=== PATIENT | male | born 1970 | race Caucasian/White ===

== ENCOUNTER → 2018-05-11 12:53 | Outpatient (CLI) | payer OTHER, SELFPAY ==
[2018-05-11 13:36] LABS: Add Manual Diff / Slide Review NO; Basophils Absolute Auto 100 /uL (0-100); Eosinophils Absolute Auto 600 /uL (0-450); Eosinophils Percent Auto 8.9 % (2-4); Hematocrit 46.3 % (41-53); Hemoglobin 15.7 g/dL (13.5-17.5); Lymphocytes Absolute Auto 2100 /uL (1100-4500); Lymphocytes Percent Auto 33.2 % (25-40); Mean Corpuscular HGB Conc 33.9 % (30-36); Mean Corpuscular Hemoglobin 31.2 PG (26-34); Mean Corpuscular Volume 91.9 fL (80-100); Monocytes Absolute Auto 600 /uL (0-900); Monocytes Percent Auto 10.3 % (3-14); Neutrophils Absolute Auto 2900 /uL (1500-7000); Neutrophils Percent Auto 46.6 % (50-75); Platelet Count 162 X10^3/uL (150-400); Red Blood Cell Count 5.03 X10^6/uL (4.5-5.9); Red Cell Distribution Width 12.7 % (11.6-14.8); White Blood Cell Count 6.3 X10^3/uL (4.5-11.0)
[2018-05-11 14:07] LABS: Alanine Aminotransferase 495 IU/L (21-72); Albumin 4.5 g/dL (3.5-5.0); Albumin Globulin Ratio 0.9 (1.0-2.8); Alkaline Phosphatase 191 U/L (38-126); Amylase 38 U/L (30-110); Aspartate Aminotransferase 173 IU/L (17-59); Bilirubin Total 5.1 mg/dL (0.2-1.3); Blood Urea Nitrogen 11 mg/dL (9-20); Calcium 9.6 mg/dL (8.4-10.2); Carbon Dioxide 26 mmol/L (22-32); Chloride 98 mmol/L (98-107); Estimated Glomerular Filt Rate > 60.0 mL/min (>60); Globulin 4.8 g/dL (1.7-4.1); Glucose 85 mg/dL (70-100); HEMOLYSIS < 15 (0-50); Lipase 166 U/L (23-300); Potassium 4.4 mmol/L (3.4-5.1); Sodium 137 mmol/L (137-145); Total Protein 9.3 g/dL (6.3-8.2)
[2018-05-11 14:38] LABS: TSH w/ Reflex to FT4 1.06 uIU/mL (0.47-4.68)
== END ==
PROVIDERS: PCP Nurse Practitioner Family; Visit Provider Nurse Practitioner Family
DX: R10.9 Unspecified abdominal pain (principal); Z87.19 Personal history of other diseases of the digestive system; L29.9 Pruritus, unspecified; Z86.19 Personal history of other infectious and parasitic diseases
CPT/HCPCS: 36415; 80053; 82150; 83690; 84443; 85025

== ENCOUNTER 2018-05-15 10:30 | Emergency (ER) | payer OTHER, SELFPAY ==
[2018-05-15] VITALS (7 sets, daily range): BP systolic 128–143; BP diastolic 91–99; PULSE 55–78; RESP 15–23; TEMP 36.6; O2SAT 98–100; BMI 28.5
--- NOTE | 2018-05-15 10:59 | DI.US.S_ITS ---
PROCEDURE: US ABDOMEN COMPLETE INDICATIONS: ruq pain elevated bili TECHNIQUE: Real-time scanning was performed of the abdominal and retroperitoneal organs, with image documentation. COMPARISON: [facility], US, ABDOMEN COMPLETE, 07/18/2013, 7:38. FINDINGS: Liver: Liver is normal in size and homogeneous in echotexture. Gallbladder: Mobile sludge is present within the gallbladder fundus. The gallbladder wall measures 2.3 mm in diameter. Biliary ducts: Intrahepatic bile ducts are non-dilated. Extrahepatic bile duct caliber measures 5.8 mm. Normal is 6-7 mm or less in diameter, or 10 mm or less post-cholecystectomy. Pancreas: The pancreas is only partially visualized. There is a questionable mass within the head of the pancreas which measures roughly 4.9 x 3.0 x 3.7 cm. Spleen: Spleen is normal in size and homogeneous in echotexture. Kidneys: Kidneys are normal in size and echotexture. Right kidney measures 12.0 cm long; left kidney measures 12.9 cm long. No hydronephrosis or nephrolithiasis. No solid masses. Aorta: Visualized aorta is normal in caliber at less than 3 cm. Iliacs: Proximal common iliac arteries are normal in caliber at less than 2.5 cm. IVC: Intrahepatic inferior vena cava is patent. Miscellaneous: No free abdominal fluid. IMPRESSION: 1. Questionable mass at the head of the pancreas. Pancreatic mass protocol CT is recommended to further characterize findings. This finding was discussed with Dr. Landin 11:45 AM on 05/15/18. 2. Gallbladder sludge. No findings to suggest choledocholithiasis or acute cholecystitis. Dictated by: Salome Chapa M.D. on 05/15/2018 at 11:43 Approved by: Salome Chapa M.D. on 05/15/2018 at 11:46
--- NOTE | 2018-05-15 11:01 | ED.RECABL ---
HPI - Recheck/Abnormal Lab/Rx General Chief Complaint: Recheck/Abnormal Lab/Rx Stated Complaint: jaundice,severe weight loss,abd pain Time Seen by Provider: 05/15/18 10:59 Source: patient Mode of arrival: ambulatory Limitations: no limitations History of Present Illness HPI narrative: patient is a 48-year-old male with history of hepatitis C, which was treated and has been controlled for the past 13 years. Now presenting with pruritus ongoing for the last 1 week.. Initially thought to be related to laundry detergent. However he feels like his eyes have gotten more yellow. Benadryl does not help with his itching. He has no shortness of breath. He has been having some abdominal discomfort in the center of his abdomen. He has had pancreatitis in the past as it does not feel quite like that. He had blood work on 05/11/2018 he had liver enzymes which were previously normal now elevated and elevated bilirubin. His mild right upper quadrant pain but more mid umbilical pain. Nauseated no vomiting no fevers no chest pain or shortness of breath. MD complaint: abnormal lab Related Data Home Medications Medication Instructions Recorded Confirmed cetirizine 10 mg capsule 10 mg PO DAILY 05/11/18 05/15/18 Tums 1 tab PO PRN PRN 05/15/18 05/15/18 hydrochlorothiazide 25 mg PO DAILY 05/15/18 05/15/18 lisinopril 10 mg PO DAILY 05/15/18 05/15/18 Previous Rx's Medication Instructions Recorded hydroxyzine pamoate 25 mg PO Q6-8H PRN #30 cap 05/15/18 ondansetron 4 mg PO Q8H PRN #20 tab 05/15/18 Allergies Allergy/AdvReac Type Severity Reaction Status Date / Time No Known Drug Allergies Allergy Verified 05/11/18 12:04 Review of Systems Review of Systems GENERAL: Denies chills, fatigue, malaise, fever, sweats, travel HEENT: Denies sinus pain, ear pain, sore throat, difficulty swallowing, neck pain RESPIRATORY: Denies dyspnea, cough, wheezing, hemoptysis, sputum. CARDIOVASCULAR: Denies chest pain, palpitations, orthopnea, edema GASTROINTESTINAL: See HPI : Denies dysuria, frequency, incontinence, hematuria, urinary retention, flank pain. MUSCULOSKELETAL: Denies weakness, joint pain, or bony pain SKIN: No rash, no erythema, no pruritus NEUROLOGIC: Denies weakness, dizziness, headache, numbness, change in speech, confusion PSYCHIATRIC: No concerning psychosocial issues. 12 point review of systems is negative except for those stated above and HPI [facility] Medical History Sebaceous cyst (Chronic) Smoker (Chronic) Chronic pancreatitis (Chronic 08/13/16) Essential hypertension (Chronic 11/18/16) Allergic rhinitis (Chronic Unknown) Herpes (Chronic Unknown) Hepatitis C (Resolved ~2005) Surgical History No history of previous surgery (Resolved) Family History Family/Other Adopted Social History Smoking Status: Former smoker alcohol intake: current (2 or 3 beers a week ) Family History Family/Other Adopted Social History Smoking Status: Former smoker alcohol intake: current (2 or 3 beers a week ) Exam Initial Vital Signs Initial Vital Signs: Vital Signs Temperature 97.9 F 05/15/18 10:39 Pulse Rate 78 05/15/18 10:39 Respiratory Rate 18 05/15/18 10:39 Blood Pressure 132/96 H 05/15/18 10:39 Pulse Oximetry 98 05/15/18 10:39 Const General: cooperative, comfortable and well groomed Nutritional Appearance: average body habitus Orientation: alert, awake and oriented x3 Eyes Alignment and Position: alignment normal Conjunctivae: conjunctival abnormality bilaterally conjunctival icterus Pupils: PERRL EOM: EOM intact bilaterally Neck Neck: normal visual inspection, trachea midline, No lymphadenopathy, No midline deformity and No JVD Lymphatic: No lymphedema Chest Chest: normal inspection of the chest Resp Effort & Inspection: normal respiratory effort Auscultation: clear to auscultation bilaterally, no rales, no rhonchi and no wheezes Cardio Rate: regular rate Rhythm: regular rhythm Heart Sounds: S1 normal and S2 normal GI Palpation: No firm, tender (mild ruq and umbilical), No ascites and No Carnett's sign positive Auscultation: normal bowel sounds Skin General: No dry skin and jaundice Neuro General: alert, oriented x3, gait normal and no focal motor deficits Speech: speech normal Extrem General: full ROM, no clubbing, cyanosis or edema, no pedal edema and no calf tenderness Course Orders Ordered: Discontinued Medications Hydroxyzine Pamoate (Vistaril) 25 mg PO NOW ONE Stop: 05/15/18 11:02 Last Admin: 05/15/18 11:28 Dose: 25 mg Sodium Chloride (Normal Saline 0.9%) 1,000 mls @ 1,000 mls/hr IV CONT ERICA Last Infusion: 05/15/18 13:03 Dose: 0 mls/hr Admin: 05/15/18 11:28 Dose: 1,000 mls/hr Ondansetron HCl (Zofran) 4 mg IV NOW ONE Stop: 05/15/18 11:41 Last Admin: 05/15/18 11:42 Dose: 4 mg Vital Signs - 8 hr 05/15/18 10:39 Temperature 97.9 F Pulse Rate 78 Respiratory Rate 18 Blood Pressure 132/96 H Pulse Oximetry 98 MDM - Recheck/Abnormal Lab/Rx Lab Data Attestation: I reviewed the patient's lab results. Result diagrams: 05/15/18 11:13 05/15/18 11:13 Lab Results 05/15/18 05/15/18 05/15/18 Range/Units 11:13 11:13 11:30 WBC 5.9 (4.5-11.0) X10^3/uL RBC 5.16 (4.5-5.9) X10^6/uL Hgb 16.3 (13.5-17.5) g/dL Hct 47.2 (41-53) % MCV 91.5 (80-100) fL MCH 31.5 (26-34) PG MCHC 34.5 (30-36) % RDW 13.1 (11.6-14.8) % Plt Count 165 (150-400) X10^3/uL Neut % (Auto) 49.2 L (50-75) % Lymph % (Auto) 27.7 (25-40) % [place] % (Auto) 11.7 (3-14) % Eos % (Auto) 9.9 H (2-4) % Baso % (Auto) 1.5 (0-2) % Neut # (Auto) 2900 (1900-1389) /uL Lymph # (Auto) 1600 (5259-4666) /uL [place] # (Auto) 700 (0-900) /uL Eos # (Auto) 600 H (0-450) /uL Baso # (Auto) 100 (0-100) /uL Sodium 137 (137-145) mmol/L Potassium 3.9 (3.4-5.1) mmol/L Chloride 101 (98-107) mmol/L Carbon Dioxide 24 (22-32) mmol/L BUN 20 (9-20) mg/dL Creatinine 0.90 (0.66-1.25) mg/dL Estimated GFR > 60.0 (>60) mL/min BUN/Creatinine Ratio 22.2 H (6-22) Glucose 193 H D (70-100) mg/dL Calcium 9.7 (8.4-10.2) mg/dL Total Bilirubin 7.2 H (0.2-1.3) mg/dL AST 60 H (17-59) IU/L ALT 201 H (21-72) IU/L Alkaline Phosphatase 159 H (38-126) U/L Total Protein 9.4 H (6.3-8.2) g/dL Albumin 4.3 (3.5-5.0) g/dL Globulin 5.1 H (1.7-4.1) g/dL Albumin/Globulin Ratio 0.8 L (1.0-2.8) Lipase 100 (23-300) U/L Urine RBC None seen (0-5/HPF) Urine WBC 5-10/hpf H (0-5/HPF) Amorphous Sediment 1+ Urine Bacteria Few (2-10) H (None) Hyaline Casts 1-5/lpf (None) Ur Culture Indicated? Specimen cultured Urine Dip Bedside Urine Glucose 250 mg/dl Bedside Urine Bilirubin + 1 Bedside Urine Ketone - Negative Urine Specific Ranger 1.025 Bedside Urine Occult Blood - Negative Bedside Urine pH 6.0 Bedside Urine Protein +/- 15 Bedside Urine Urobilinogen +/- 1mg Bedside Urine Nitrite - Negative Bedside Urine Leukocytes +/- 15 Esterase Imaging Data US - abdomen: Radiologist's impression: PROCEDURE: US ABDOMEN COMPLETE INDICATIONS: ruq pain elevated bili TECHNIQUE: Real-time scanning was performed of the abdominal and retroperitoneal organs, with image documentation. COMPARISON: [facility], US, ABDOMEN COMPLETE, 07/18/2013, 7:38. FINDINGS: Liver: Liver is normal in size and homogeneous in echotexture. Gallbladder: Mobile sludge is present within the gallbladder fundus. The gallbladder wall measures 2.3 mm in diameter. Biliary ducts: Intrahepatic bile ducts are non-dilated. Extrahepatic bile duct caliber measures 5.8 mm. Normal is 6-7 mm or less in diameter, or 10 mm or less post-cholecystectomy. Pancreas: The pancreas is only partially visualized. There is a questionable mass within the head of the pancreas which measures roughly 4.9 x 3.0 x 3.7 cm. Spleen: Spleen is normal in size and homogeneous in echotexture. Kidneys: Kidneys are normal in size and echotexture. Right kidney measures 12.0 cm long; left kidney measures 12.9 cm long. No hydronephrosis or nephrolithiasis. No solid masses. Aorta: Visualized aorta is normal in caliber at less than 3 cm. Iliacs: Proximal common iliac arteries are normal in caliber at less than 2.5 cm. IVC: Intrahepatic inferior vena cava is patent. Miscellaneous: No free abdominal fluid. IMPRESSION: 1. Questionable mass at the head of the pancreas. Pancreatic mass protocol CT is recommended to further characterize findings. This finding was discussed with Dr. Landin 11:45 AM on 05/15/18. 2. Gallbladder sludge. No findings to suggest choledocholithiasis or acute cholecystitis. Dictated by: Salome Chapa M.D. on 05/15/2018 at 11:43 CT scan - abdomen: Radiologist's impression: PROCEDURE: CT ABDOMEN WWO PELVIS W INDICATIONS: pancratic mass on ultrasound TECHNIQUE: After the administration of oral contrast, 5 mm thick sections acquired from the diaphragms to the iliac crests. After the administration of intravenous contrast, 5 mm thick sections acquired from the diaphragms to the symphysis. 5 mm thick coronal and sagittal reformats were acquired. For radiation dose reduction, the following was used: automated exposure control, adjustment of mA and/or kV according to patient size. COMPARISON: [facility], CT, ABDOMEN WITH CONTRAST, 08/23/2016, 9:53. [facility], US, US ABDOMEN COMPLETE, 05/15/2018, 11:10. FINDINGS: Image quality: Excellent. ABDOMEN: Lung bases: Lung bases are clear. Heart size is normal. A small hiatal hernia is incidentally noted. Solid organs: Liver is normal in size and enhancement. Gallbladder wall does not appear thickened. Biliary system is non-dilated. In this patient with this given history, scrutiny is given to the pancreas. No definite spiculated masses are seen, although there is broad fullness seen of the body of the pancreas. 2 small cystic foci are seen involving head of the pancreas that measure 1 cm on series 3 image 47 and also 1 cm on series 3 image 43. Minimal surrounding inflammatory change can be seen. Spleen is normal in size and enhancement. No adrenal nodules. Both kidneys are normal in size. No hydronephrosis or nephrolithiasis. Bowel and peritoneum: Stomach, small and large bowel loops are normal in caliber and wall thickness. No free fluid or air. Incidental note is made of a normal-appearing appendix. Nodes and vessels: No retroperitoneal or mesenteric adenopathy by size criteria. Aorta and inferior vena are normal in caliber. Miscellaneous: No ventral hernias. PELVIS: Genitourinary: Bladder wall thickness is normal. Miscellaneous: No inguinal hernias or adenopathy. Bones: No suspicious bony lesions. No vertebral body compression fractures. IMPRESSION: Pancreatic fullness, without a discrete mass identified. Surrounding inflammatory changes are seen. Please correlate with active pancreatitis. Followup is recommended, with either a short-term followup pancreatic protocol MRI or a pancreatic protocol CT of the abdomen in 2-3 months. Dictated by: Dany Jacobs M.D. on 05/15/2018 at 11:47 MDM Narrative Medical decision making narrative: Patient's bilirubin has increased since last week his liver enzymes have improved slightly. Ultrasound shows possible pancreatic mass. CT is done. No discrete mass found on CT however there is high suspicion with patient's symptoms. Recommended MRI of the pancreas. I called and spoke with Dr. rees she who works at patient's PCP office. The patient has an appointment with them tomorrow she is trying to arrange outpatient MRI. I have discussed all results with patient and . They agree and will follow up tomorrow. They understand MRI will need to be done and further testing. Discharge Plan Departure Patient Disposition: Home Clinical Impression: Pancreatic abnormality, Elevated bilirubin Discharge Date/Time: 05/15/18 14:08 Interventions: ED Discharge Assessment Last Done: 05/15/18 14:07 Instructions: Pancreatic Cancer Activity Restrictions/Additional Instructions: *You have been diagnosed with Pancreatic abnormality, elevated bilirubin *What to do: he will need further testing MRI of the pancreas. Also close monitoring. increase fluid intake small frequent amounts of Gatorade or Gatorade like substance *Continue to take medications as directed Vistaril 25-50 mg every 6 hr if needed for itching or nausea Zofran 4 mg sublingual every 6-8 hours if needed for nausea or vomiting *Follow up with your primary care provider Selina Cordero tomorrow at 3:45 p.m. *Return to ER if you should have persistent vomiting, increased pain, weakness, confusion or any new, worsening or concerning symptoms Prescriptions: New ondansetron 4 mg tablet,disintegrating 4 mg PO Q8H PRN (Reason: nausea and vomiting) Qty: 20 RF: 0 hydroxyzine pamoate 25 mg capsule 25 mg PO Q6-8H PRN (Reason: itching) Qty: 30 RF: 0 No Action Zyrtec 10 mg capsule 10 mg PO DAILY RF: 0 lisinopril 10 mg tablet 10 mg PO DAILY RF: 0 hydrochlorothiazide 25 mg tablet 25 mg PO DAILY RF: 0 Tums 1 tab PO PRN PRN (Reason: Indigestion) RF: 0 Referrals: Selina Cordero ARNP [Primary Care Provider] - Stand Alone Forms: Work Release Note
--- NOTE | 2018-05-15 11:06 | ED_ITS ---
HPI - Recheck/Abnormal Lab/Rx General Chief Complaint: Recheck/Abnormal Lab/Rx Stated Complaint: jaundice,severe weight loss,abd pain Time Seen by Provider: 05/15/18 10:59 Source: patient Mode of arrival: ambulatory Limitations: no limitations History of Present Illness HPI narrative: patient is a 48-year-old male with history of hepatitis C, which was treated and has been controlled for the past 13 years. Now presenting with pruritus ongoing for the last 1 week.. Initially thought to be related to laundry detergent. However he feels like his eyes have gotten more yellow. Benadryl does not help with his itching. He has no shortness of breath. He has been having some abdominal discomfort in the center of his abdomen. He has had pancreatitis in the past as it does not feel quite like that. He had blood work on 05/11/2018 he had liver enzymes which were previously normal now elevated and elevated bilirubin. His mild right upper quadrant pain but more mid umbilical pain. Nauseated no vomiting no fevers no chest pain or shortness of breath. MD complaint: abnormal lab Related Data Home Medications Medication Instructions Recorded Confirmed cetirizine 10 mg capsule 10 mg PO DAILY 05/11/18 05/15/18 Tums 1 tab PO PRN PRN 05/15/18 05/15/18 hydrochlorothiazide 25 mg PO DAILY 05/15/18 05/15/18 lisinopril 10 mg PO DAILY 05/15/18 05/15/18 Previous Rx's Medication Instructions Recorded hydroxyzine pamoate 25 mg PO Q6-8H PRN #30 cap 05/15/18 ondansetron 4 mg PO Q8H PRN #20 tab 05/15/18 Allergies Allergy/AdvReac Type Severity Reaction Status Date / Time No Known Drug Allergies Allergy Verified 05/11/18 12:04 Review of Systems Review of Systems GENERAL: Denies chills, fatigue, malaise, fever, sweats, travel HEENT: Denies sinus pain, ear pain, sore throat, difficulty swallowing, neck pain RESPIRATORY: Denies dyspnea, cough, wheezing, hemoptysis, sputum. CARDIOVASCULAR: Denies chest pain, palpitations, orthopnea, edema GASTROINTESTINAL: See HPI : Denies dysuria, frequency, incontinence, hematuria, urinary retention, flank pain. MUSCULOSKELETAL: Denies weakness, joint pain, or bony pain SKIN: No rash, no erythema, no pruritus NEUROLOGIC: Denies weakness, dizziness, headache, numbness, change in speech, confusion PSYCHIATRIC: No concerning psychosocial issues. 12 point review of systems is negative except for those stated above and HPI [facility] Medical History Sebaceous cyst (Chronic) Smoker (Chronic) Chronic pancreatitis (Chronic 08/13/16) Essential hypertension (Chronic 11/18/16) Allergic rhinitis (Chronic Unknown) Herpes (Chronic Unknown) Hepatitis C (Resolved ~2005) Surgical History No history of previous surgery (Resolved) Family History Family/Other Adopted Social History Smoking Status: Former smoker alcohol intake: current (2 or 3 beers a week ) Family History Family/Other Adopted Social History Smoking Status: Former smoker alcohol intake: current (2 or 3 beers a week ) Exam Initial Vital Signs Initial Vital Signs: Vital Signs Temperature 97.9 F 05/15/18 10:39 Pulse Rate 78 05/15/18 10:39 Respiratory Rate 18 05/15/18 10:39 Blood Pressure 132/96 H 05/15/18 10:39 Pulse Oximetry 98 05/15/18 10:39 Const General: cooperative, comfortable and well groomed Nutritional Appearance: average body habitus Orientation: alert, awake and oriented x3 Eyes Alignment and Position: alignment normal Conjunctivae: conjunctival abnormality bilaterally conjunctival icterus Pupils: PERRL EOM: EOM intact bilaterally Neck Neck: normal visual inspection, trachea midline, No lymphadenopathy, No midline deformity and No JVD Lymphatic: No lymphedema Chest Chest: normal inspection of the chest Resp Effort & Inspection: normal respiratory effort Auscultation: clear to auscultation bilaterally, no rales, no rhonchi and no wheezes Cardio Rate: regular rate Rhythm: regular rhythm Heart Sounds: S1 normal and S2 normal GI Palpation: No firm, tender (mild ruq and umbilical), No ascites and No Carnett's sign positive Auscultation: normal bowel sounds Skin General: No dry skin and jaundice Neuro General: alert, oriented x3, gait normal and no focal motor deficits Speech: speech normal Extrem General: full ROM, no clubbing, cyanosis or edema, no pedal edema and no calf tenderness Course Orders Ordered: Discontinued Medications Hydroxyzine Pamoate (Vistaril) 25 mg PO NOW ONE Stop: 05/15/18 11:02 Last Admin: 05/15/18 11:28 Dose: 25 mg Sodium Chloride (Normal Saline 0.9%) 1,000 mls @ 1,000 mls/hr IV CONT ERICA Last Infusion: 05/15/18 13:03 Dose: 0 mls/hr Admin: 05/15/18 11:28 Dose: 1,000 mls/hr Ondansetron HCl (Zofran) 4 mg IV NOW ONE Stop: 05/15/18 11:41 Last Admin: 05/15/18 11:42 Dose: 4 mg Vital Signs - 8 hr 05/15/18 10:39 Temperature 97.9 F Pulse Rate 78 Respiratory Rate 18 Blood Pressure 132/96 H Pulse Oximetry 98 MDM - Recheck/Abnormal Lab/Rx Lab Data Attestation: I reviewed the patient's lab results. Result diagrams: 05/15/18 11:13 05/15/18 11:13 Lab Results 05/15/18 05/15/18 05/15/18 Range/Units 11:13 11:13 11:30 WBC 5.9 (4.5-11.0) X10^3/uL RBC 5.16 (4.5-5.9) X10^6/uL Hgb 16.3 (13.5-17.5) g/dL Hct 47.2 (41-53) % MCV 91.5 (80-100) fL MCH 31.5 (26-34) PG MCHC 34.5 (30-36) % RDW 13.1 (11.6-14.8) % Plt Count 165 (150-400) X10^3/uL Neut % (Auto) 49.2 L (50-75) % Lymph % (Auto) 27.7 (25-40) % [place] % (Auto) 11.7 (3-14) % Eos % (Auto) 9.9 H (2-4) % Baso % (Auto) 1.5 (0-2) % Neut # (Auto) 2900 (4706-1349) /uL Lymph # (Auto) 1600 (7105-7853) /uL [place] # (Auto) 700 (0-900) /uL Eos # (Auto) 600 H (0-450) /uL Baso # (Auto) 100 (0-100) /uL Sodium 137 (137-145) mmol/L Potassium 3.9 (3.4-5.1) mmol/L Chloride 101 (98-107) mmol/L Carbon Dioxide 24 (22-32) mmol/L BUN 20 (9-20) mg/dL Creatinine 0.90 (0.66-1.25) mg/dL Estimated GFR > 60.0 (>60) mL/min BUN/Creatinine Ratio 22.2 H (6-22) Glucose 193 H D (70-100) mg/dL Calcium 9.7 (8.4-10.2) mg/dL Total Bilirubin 7.2 H (0.2-1.3) mg/dL AST 60 H (17-59) IU/L ALT 201 H (21-72) IU/L Alkaline Phosphatase 159 H (38-126) U/L Total Protein 9.4 H (6.3-8.2) g/dL Albumin 4.3 (3.5-5.0) g/dL Globulin 5.1 H (1.7-4.1) g/dL Albumin/Globulin Ratio 0.8 L (1.0-2.8) Lipase 100 (23-300) U/L Urine RBC None seen (0-5/HPF) Urine WBC 5-10/hpf H (0-5/HPF) Amorphous Sediment 1+ Urine Bacteria Few (2-10) H (None) Hyaline Casts 1-5/lpf (None) Ur Culture Indicated? Specimen cultured Urine Dip Bedside Urine Glucose 250 mg/dl Bedside Urine Bilirubin + 1 Bedside Urine Ketone - Negative Urine Specific [place] 1.025 Bedside Urine Occult Blood - Negative Bedside Urine pH 6.0 Bedside Urine Protein +/- 15 Bedside Urine Urobilinogen +/- 1mg Bedside Urine Nitrite - Negative Bedside Urine Leukocytes +/- 15 Esterase Imaging Data US - abdomen: Radiologist's impression: PROCEDURE: US ABDOMEN COMPLETE INDICATIONS: ruq pain elevated bili TECHNIQUE: Real-time scanning was performed of the abdominal and retroperitoneal organs, with image documentation. COMPARISON: [facility], US, ABDOMEN COMPLETE, 07/18/2013, 7:38. FINDINGS: Liver: Liver is normal in size and homogeneous in echotexture. Gallbladder: Mobile sludge is present within the gallbladder fundus. The gallbladder wall measures 2.3 mm in diameter. Biliary ducts: Intrahepatic bile ducts are non-dilated. Extrahepatic bile duct caliber measures 5.8 mm. Normal is 6-7 mm or less in diameter, or 10 mm or less post-cholecystectomy. Pancreas: The pancreas is only partially visualized. There is a questionable mass within the head of the pancreas which measures roughly 4.9 x 3.0 x 3.7 cm. Spleen: Spleen is normal in size and homogeneous in echotexture. Kidneys: Kidneys are normal in size and echotexture. Right kidney measures 12.0 cm long; left kidney measures 12.9 cm long. No hydronephrosis or nephrolithiasis. No solid masses. Aorta: Visualized aorta is normal in caliber at less than 3 cm. Iliacs: Proximal common iliac arteries are normal in caliber at less than 2.5 cm. IVC: Intrahepatic inferior vena cava is patent. Miscellaneous: No free abdominal fluid. IMPRESSION: 1. Questionable mass at the head of the pancreas. Pancreatic mass protocol CT is recommended to further characterize findings. This finding was discussed with Dr. Landin 11:45 AM on 05/15/18. 2. Gallbladder sludge. No findings to suggest choledocholithiasis or acute cholecystitis. Dictated by: Salome Chapa M.D. on 05/15/2018 at 11:43 CT scan - abdomen: Radiologist's impression: PROCEDURE: CT ABDOMEN WWO PELVIS W INDICATIONS: pancratic mass on ultrasound TECHNIQUE: After the administration of oral contrast, 5 mm thick sections acquired from the diaphragms to the iliac crests. After the administration of intravenous contrast, 5 mm thick sections acquired from the diaphragms to the symphysis. 5 mm thick coronal and sagittal reformats were acquired. For radiation dose reduction, the following was used: automated exposure control, adjustment of mA and/or kV according to patient size. COMPARISON: [facility], CT, ABDOMEN WITH CONTRAST, 08/23/2016, 9:53. [facility], US, US ABDOMEN COMPLETE, 05/15/2018, 11:10. FINDINGS: Image quality: Excellent. ABDOMEN: Lung bases: Lung bases are clear. Heart size is normal. A small hiatal hernia is incidentally noted. Solid organs: Liver is normal in size and enhancement. Gallbladder wall does not appear thickened. Biliary system is non-dilated. In this patient with this given history, scrutiny is given to the pancreas. No definite spiculated masses are seen, although there is broad fullness seen of the body of the pancreas. 2 small cystic foci are seen involving head of the pancreas that measure 1 cm on series 3 image 47 and also 1 cm on series 3 image 43. Minimal surrounding inflammatory change can be seen. Spleen is normal in size and enhancement. No adrenal nodules. Both kidneys are normal in size. No hydronephrosis or nephrolithiasis. Bowel and peritoneum: Stomach, small and large bowel loops are normal in caliber and wall thickness. No free fluid or air. Incidental note is made of a normal- appearing appendix. Nodes and vessels: No retroperitoneal or mesenteric adenopathy by size criteria. Aorta and inferior vena are normal in caliber. Miscellaneous: No ventral hernias. PELVIS: Genitourinary: Bladder wall thickness is normal. Miscellaneous: No inguinal hernias or adenopathy. Bones: No suspicious bony lesions. No vertebral body compression fractures. IMPRESSION: Pancreatic fullness, without a discrete mass identified. Surroundin g inflammatory changes are seen. Please correlate with active pancreatitis. Followup is recommended, with either a short-term followup pancreatic protocol MRI or a pancreatic protocol CT of the abdomen in 2-3 months. Dictated by: Dany Jacobs M.D. on 05/15/2018 at 11:47 MDM Narrative Medical decision making narrative: Patient's bilirubin has increased since last week his liver enzymes have improved slightly. Ultrasound shows possible pancreatic mass. CT is done. No discrete mass found on CT however there is high suspicion with patient's symptoms. Recommended MRI of the pancreas. I called and spoke with Dr. rees she who works at patient's PCP office. The patient has an appointment with them tomorrow she is trying to arrange outpatient MRI. I have discussed all results with patient and . They agree and will follow up tomorrow. They understand MRI will need to be done and further testi ng. Discharge Plan Departure Patient Disposition: Home Clinical Impression: Pancreatic abnormality, Elevated bilirubin Discharge Date/Time: 05/15/18 14:08 Interventions: ED Discharge Assessment Last Done: 05/15/18 14:07 Instructions: Pancreatic Cancer Activity Restrictions/Additional Instructions: *You have been diagnosed with Pancreatic abnormality, elevated bilirubin *What to do: he will need further testing MRI of the pancreas. Also close monitoring. increase fluid intake small frequent amounts of Gatorade or Gatorade like substance *Continue to take medications as directed Vistaril 25-50 mg every 6 hr if needed for itching or nausea Zofran 4 mg sublingual every 6-8 hours if needed for nausea or vomiting *Follow up with your primary care provider Selina Cordero tomorrow at 3:45 p.m. *Return to ER if you should have persistent vomiting, increased pain, weakness, confusion or any new, worsening or concerning symptoms Prescriptions: New ondansetron 4 mg tablet,disintegrating 4 mg PO Q8H PRN (Reason: nausea and vomiting) Qty: 20 RF: 0 hydroxyzine pamoate 25 mg capsule 25 mg PO Q6-8H PRN (Reason: itching) Qty: 30 RF: 0 No Action Zyrtec 10 mg capsule 10 mg PO DAILY RF: 0 lisinopril 10 mg tablet 10 mg PO DAILY RF: 0 hydrochlorothiazide 25 mg tablet 25 mg PO DAILY RF: 0 Tums 1 tab PO PRN PRN (Reason: Indigestion) RF: 0 Referrals: Selina Cordero ARNP [Primary Care Provider] - Stand Alone Forms: Work Release Note
[2018-05-15 11:21] LABS: Add Manual Diff / Slide Review NO; Basophils Absolute Auto 100 /uL (0-100); Basophils Percent Auto 1.5 % (0-2); Eosinophils Absolute Auto 600 /uL (0-450); Eosinophils Percent Auto 9.9 % (2-4); Hematocrit 47.2 % (41-53); Hemoglobin 16.3 g/dL (13.5-17.5); Lymphocytes Absolute Auto 1600 /uL (1100-4500); Lymphocytes Percent Auto 27.7 % (25-40); Mean Corpuscular HGB Conc 34.5 % (30-36); Mean Corpuscular Hemoglobin 31.5 PG (26-34); Mean Corpuscular Volume 91.5 fL (80-100); Monocytes Absolute Auto 700 /uL (0-900); Monocytes Percent Auto 11.7 % (3-14); Neutrophils Absolute Auto 2900 /uL (1500-7000); Neutrophils Percent Auto 49.2 % (50-75); Platelet Count 165 X10^3/uL (150-400); Red Blood Cell Count 5.16 X10^6/uL (4.5-5.9); Red Cell Distribution Width 13.1 % (11.6-14.8); White Blood Cell Count 5.9 X10^3/uL (4.5-11.0)
[2018-05-15] MEDS: hydrOXYzine pamoate 25 MG CAPSULE PO (11:28)
[2018-05-15] MEDS: SODIUM CHLORIDE 0.9% 1,000 ML 1000 ML IV (11:28)
[2018-05-15 11:32] LABS: Alanine Aminotransferase 201 IU/L (21-72); Albumin 4.3 g/dL (3.5-5.0); Albumin Globulin Ratio 0.8 (1.0-2.8); Alkaline Phosphatase 159 U/L (38-126); Aspartate Aminotransferase 60 IU/L (17-59); BUN Creatinine Ratio 22.2 (6-22); Bilirubin Total 7.2 mg/dL (0.2-1.3); Blood Urea Nitrogen 20 mg/dL (9-20); Calcium 9.7 mg/dL (8.4-10.2); Carbon Dioxide 24 mmol/L (22-32); Chloride 101 mmol/L (98-107); Estimated Glomerular Filt Rate > 60.0 mL/min (>60); Globulin 5.1 g/dL (1.7-4.1); Glucose 193 mg/dL (70-100); HEMOLYSIS < 15 (0-50); Lipase 100 U/L (23-300); Potassium 3.9 mmol/L (3.4-5.1); Sodium 137 mmol/L (137-145); Total Protein 9.4 g/dL (6.3-8.2)
[2018-05-15] MEDS: ONDANSETRON 4 MG/2 ML INJ IV (11:42)
[2018-05-15 11:46] LABS: RBC Urine None Seen (0-5/HPF)
[2018-05-15 11:57] LABS: Amorphous Sediment Urine 1+; WBC Urine 5-10/HPF (0-5/HPF)
[2018-05-15 11:58] LABS: Bacteria Urine Few (2-10); Culture Indicated Urine Specimen Cultured; Hyaline Casts Urine 1-5/LPF
--- NOTE | 2018-05-15 12:01 | DI.CT.S_ITS ---
PROCEDURE: CT ABDOMEN WWO PELVIS W INDICATIONS: pancratic mass on ultrasound TECHNIQUE: After the administration of oral contrast, 5 mm thick sections acquired from the diaphragms to the iliac crests. After the administration of intravenous contrast, 5 mm thick sections acquired from the diaphragms to the symphysis. 5 mm thick coronal and sagittal reformats were acquired. For radiation dose reduction, the following was used: automated exposure control, adjustment of mA and/or kV according to patient size. COMPARISON: [facility], CT, ABDOMEN WITH CONTRAST, 08/23/2016, 9:53. [facility], US, US ABDOMEN COMPLETE, 05/15/2018, 11:10. FINDINGS: Image quality: Excellent. ABDOMEN: Lung bases: Lung bases are clear. Heart size is normal. A small hiatal hernia is incidentally noted. Solid organs: Liver is normal in size and enhancement. Gallbladder wall does not appear thickened. Biliary system is non-dilated. In this patient with this given history, scrutiny is given to the pancreas. No definite spiculated masses are seen, although there is broad fullness seen of the body of the pancreas. 2 small cystic foci are seen involving head of the pancreas that measure 1 cm on series 3 image 47 and also 1 cm on series 3 image 43. Minimal surrounding inflammatory change can be seen. Spleen is normal in size and enhancement. No adrenal nodules. Both kidneys are normal in size. No hydronephrosis or nephrolithiasis. Bowel and peritoneum: Stomach, small and large bowel loops are normal in caliber and wall thickness. No free fluid or air. Incidental note is made of a normal-appearing appendix. Nodes and vessels: No retroperitoneal or mesenteric adenopathy by size criteria. Aorta and inferior vena are normal in caliber. Miscellaneous: No ventral hernias. PELVIS: Genitourinary: Bladder wall thickness is normal. Miscellaneous: No inguinal hernias or adenopathy. Bones: No suspicious bony lesions. No vertebral body compression fractures. IMPRESSION: Pancreatic fullness, without a discrete mass identified. Surrounding inflammatory changes are seen. Please correlate with active pancreatitis. Followup is recommended, with either a short-term followup pancreatic protocol MRI or a pancreatic protocol CT of the abdomen in 2-3 months. Dictated by: Dany Jacobs M.D. on 05/15/2018 at 11:47 Approved by: Dany Jacobs M.D. on 05/15/2018 at 11:53
== END 2018-05-15 14:08 | disposition home or self-care (01) ==
PROVIDERS: Emergency Provider Emergency Medicine; PCP Nurse Practitioner Family
DX: Q45.3 Other congenital malformations of pancreas and pancreatic duct (principal); R17 Unspecified jaundice
CPT/HCPCS: 36591; 74178; 76700; 80053; 81003; 81015; 83690; 85025; 87086; 96361; 96374; 99284; J2405; Q9967

== ENCOUNTER → 2018-05-17 09:48 | Outpatient (CLI) | payer OTHER, SELFPAY ==
--- NOTE | 2018-05-17 09:49 | DI.MRI.S_ITS ---
PROCEDURE: MR ABDOMEN WO/W CON INDICATIONS: Pancreatic Protocol TECHNIQUE: Coronal HASTE, axial 2D FLASH in- and [id number]; axial breath-hold T2 FSE. Dynamic axial VIBE during the administration of contrast; post-contrast coronal VIBE or 2D FLASH with fat saturation from the hepatic dome to the iliac crests. Optional diffusion weighted imaging and ADC may be performed. COMPARISON: [facility], CT, CT ABDOMEN WWO PELVIS W, 05/15/2018, 12:18. [facility], US, US ABDOMEN COMPLETE, 05/15/2018, 11:10. FINDINGS: Image quality: Excellent. Lung bases: No basal pleural effusions. Heart size is normal. Solid organs: The pancreas is unremarkable. No pancreatic masses are evident. Small cysts involving the tail of the pancreas are present with prominence of multiple sidebranches involving the body and tail. The main pancreatic duct is normal in size and measures approximately 2-3 mm in diameter. Additional smaller cystic foci are present involving the body and head of the pancreas. The adrenals and kidneys are within normal limits there is no hydronephrosis. The spleen is within normal limits. No focal splenic lesion is identified. The liver is normal in size. There is mild focal prominence of the lateral segment of the left hepatic lobe without signal dropout on opposed phase images compared to the in phase images. Postcontrast images demonstrate subtle arterial enhancement within this region without a definable mass evident. Cystic foci within this region are identified in with mild prominence of the intrahepatic biliary ducts within the left hepatic lobe. Additional mildly prominent intrahepatic bile ducts are evident throughout the liver. There may be focal narrowing at the confluence between the right and left hepatic ducts. Vague arterial enhancement within the region of the tracey hepatis is present with a definable lesion evident. The main portal vein is patent. The hepatic veins are also patent. The common bile duct is normal in size and measures up to 6 mm in diameter. No intraluminal filling defects are identified. The gallbladder is within normal limits. No cholelithiasis or gallbladder wall thickening is appreciated. Nodes and vessels: No retroperitoneal or mesenteric adenopathy by size criteria. Aorta and inferior vena cava are normal in size. Bowel and peritoneum: Unenhanced bowel loops are normal in caliber. No free fluid. Bones and soft tissues: No ventral hernias. Bone marrow is normal in overall signal. IMPRESSION: 1. No pancreatic mass is evident to correlate with the abnormal appearance on the ultrasound. Ultrasound abnormality probably represented a bowel loop. 2. Multiple dilated sidebranches of the main pancreatic duct without dilatation of the main pancreatic duct. Scattered small pancreatic cysts are evident. This may represent intra-papillary mucinous neoplasm. A 3 month followup contrast enhanced MRI of the abdomen is recommended for further evaluation. 3. Abnormal enhancement pattern of the liver with focal enlargement of left hepatic lobe may represent transient hepatic arterial difference, given that no definable hepatic mass is appreciated. However, given mild intrahepatic biliary dilatation with narrowing of the distal right and left hepatic ducts, the possibility of a [place] tumor cannot be excluded and followup imaging in 3 months (contrast enhanced MRI) is recommended. 4. No cholelithiasis or choledocholithiasis. Dictated by: Gt Mcguire M.D. on 05/17/2018 at 10:57 Approved by: Gt Mcguire M.D. on 05/17/2018 at 11:31
== END ==
PROVIDERS: PCP Nurse Practitioner Family; Visit Provider Nurse Practitioner Family
DX: Q45.3 Other congenital malformations of pancreas and pancreatic duct (principal); K86.2 Cyst of pancreas; R16.0 Hepatomegaly, not elsewhere classified; Z87.19 Personal history of other diseases of the digestive system
CPT/HCPCS: 74183; A9579

== ENCOUNTER → 2018-07-03 17:05 | Outpatient (CLI) | payer OTHER, SELFPAY ==
[2018-07-03 17:37] LABS: Add Manual Diff / Slide Review NO; Basophils Absolute Auto 100 /uL (0-100); Basophils Percent Auto 0.7 % (0-2); Eosinophils Absolute Auto 100 /uL (0-450); Hematocrit 42.5 % (41-53); Hemoglobin 14.5 g/dL (13.5-17.5); Lymphocytes Absolute Auto 4100 /uL (1100-4500); Lymphocytes Percent Auto 33.5 % (25-40); Mean Corpuscular Hemoglobin 32.3 PG (26-34); Mean Corpuscular Volume 95.1 fL (80-100); Monocytes Absolute Auto 800 /uL (0-900); Monocytes Percent Auto 6.3 % (3-14); Neutrophils Absolute Auto 7200 /uL (1500-7000); Neutrophils Percent Auto 58.5 % (50-75); Platelet Count 178 X10^3/uL (150-400); Red Blood Cell Count 4.48 X10^6/uL (4.5-5.9); Red Cell Distribution Width 15.3 % (11.6-14.8); White Blood Cell Count 12.4 X10^3/uL (4.5-11.0)
[2018-07-03 17:59] LABS: Alanine Aminotransferase 123 IU/L (21-72); Albumin 4.3 g/dL (3.5-5.0); Albumin Globulin Ratio 1.3 (1.0-2.8); Alkaline Phosphatase 83 U/L (38-126); Aspartate Aminotransferase 52 IU/L (17-59); BUN Creatinine Ratio 28.6 (6-22); Blood Urea Nitrogen 20 mg/dL (9-20); Calcium 9.8 mg/dL (8.4-10.2); Carbon Dioxide 25 mmol/L (22-32); Chloride 100 mmol/L (98-107); Estimated Glomerular Filt Rate > 60.0 mL/min (>60); Globulin 3.2 g/dL (1.7-4.1); Glucose 186 mg/dL (70-100); HEMOLYSIS < 15 (0-50); Potassium 4.1 mmol/L (3.4-5.1); Sodium 136 mmol/L (137-145); Total Protein 7.5 g/dL (6.3-8.2)
[2018-07-03 21:06] LABS: Vitamin D 25 Hydroxy (D3) 20.7 ng/mL (30.0-100.0)
== END ==
DX: K83.09 Other cholangitis (principal)
CPT/HCPCS: 36415; 80053; 82306; 85025

== ENCOUNTER → 2018-07-04 17:44 | Outpatient (CLI) | payer OTHER, SELFPAY | DX: K83.09 Other cholangitis (principal) | CPT/HCPCS: 82656 ==

== ENCOUNTER → 2018-08-16 15:50 | Outpatient (CLI) | payer OTHER, SELFPAY ==
[2018-08-16 18:10] LABS: Alanine Aminotransferase 128 IU/L (21-72); Albumin 4.8 g/dL (3.5-5.0); Albumin Globulin Ratio 1.6 (1.0-2.8); Alkaline Phosphatase 72 U/L (38-126); Aspartate Aminotransferase 63 IU/L (17-59); Bilirubin Total 2.4 mg/dL (0.2-1.3); Bilirubin Unconjugated 1.7 mg/dL (0.0-1.1); HEMOLYSIS < 15 (0-50); Total Protein 7.8 g/dL (6.3-8.2)
== END ==
DX: K75.4 Autoimmune hepatitis (principal); K86.1 Other chronic pancreatitis
CPT/HCPCS: 36415; 80076

== ENCOUNTER → 2018-11-08 07:50 | Outpatient (CLI) | payer OTHER, SELFPAY | PROVIDERS: PCP Nurse Practitioner Family; Visit Provider Nurse Practitioner Family | DX: R00.2 Palpitations (principal); Z82.49 Family history of ischemic heart disease and other diseases of the circulatory system | CPT/HCPCS: 93005 ==

== ENCOUNTER → 2018-11-08 08:45 | Outpatient (CLI) | payer OTHER, SELFPAY ==
--- NOTE | 2018-12-01 08:36 | P.HOLT.S_ITS ---
Urgent Care Technician Report Referral & Results Date Patient Seen: 11/08/18 Requesting provider: Brian Cordero Indication: Palpitations Duration of monitoring (days): 7 Diary information: There were 10 patient triggered events and a patient diary entries The patient triggered events associated with sinus rhythm, PVCs and PACs The diarrhea events were associated with sinus rhythm, PACs, PVCs, and 1 run of SVT Data: Minimum heart rate identified was 47 beats per minute at 05:19 on 11/14/2018 Maximum sinus heart rate was 170 beats per minute at 15:32 on 11/13/2018 Maximum overall heart rate was measured at 250 beats per minute at 09:41 on 11/14/2018 during a 4 beat run of SVT Approximately 3% of identified beats were supraventricular ectopic in origin Less than 1% of identified beats or ventricular ectopic in origin 270+ runs of SVT were identified longest of which was 15 beats at a rate of 161 beats per minute the fastest was the 4 beat run at approximately 250 beats per minute Impression: Occasional very brief runs of SVT as above Otherwise frequent PACs were also identified Clinical correlation suggested
== END ==
PROVIDERS: PCP Nurse Practitioner Family; Visit Provider Nurse Practitioner Family
DX: R00.2 Palpitations (principal); Z82.49 Family history of ischemic heart disease and other diseases of the circulatory system
CPT/HCPCS: 0296T; 0298T

== ENCOUNTER → 2019-03-09 08:48 | Outpatient (CLI) | payer OTHER, SELFPAY | PROVIDERS: PCP Nurse Practitioner Family; Visit Provider Nurse Practitioner Family | DX: M85.88 Other specified disorders of bone density and structure, other site (principal); K83.09 Other cholangitis; Z79.52 Long term (current) use of systemic steroids | CPT/HCPCS: 77080 ==

== ENCOUNTER → 2021-02-19 12:31 | Outpatient (CLI) | payer OTHER, SELFPAY ==
--- NOTE | 2021-02-19 12:34 | DI.CT.S_ITS ---
PROCEDURE: CT ABDOMEN PELVIS W CON INDICATIONS: Other chronic pancreatitis TECHNIQUE: After the administration of intravenous contrast, axial sections acquired from the lung bases to the pubic symphysis. Coronal and sagittal reformats were performed. For radiation dose reduction, the following was used: automated exposure control, adjustment of mA and/or kV according to patient size. COMPARISON: [facility], MR, MR ABDOMEN WO/W CON, 05/17/2018, 10:39. [facility], CT, CT ABDOMEN WWO PELVIS W, 05/15/2018, 12:18. FINDINGS: Image quality: Excellent. Lung bases: Unremarkable. Heart: No significant findings. ABDOMEN: Liver: Unremarkable. Gallbladder: Unremarkable. Biliary ducts: Intrahepatic and extrahepatic bile ducts are nondilated. Pancreas: The pancreas appears mildly diminutive and atrophic. There is no pancreatic ductal dilatation. The previously seen cystic foci within the pancreas are no longer visualized. Spleen: Unremarkable. Adrenal Glands: Unremarkable. Kidneys and Ureters: Unremarkable. Stomach and Bowel: Stomach, small bowel loops, and colon are unremarkable. Normal appendix. Peritoneum: No abnormal intraperitoneal fluid. No free air. Ventral Wall: No hernias. Abdominal Nodes: No retroperitoneal or mesenteric adenopathy by size criteria. No retroperitoneal inflammatory mass or fibrosis is seen. Vessels: Aorta and inferior vena cava are normal in size. PELVIS: Pelvic Organs: Unremarkable. Bladder: Unremarkable. Pelvic Nodes: No enlarged lymph nodes. Miscellaneous: No hernias are seen. Bones: Mild degenerative changes are seen in the spine. IMPRESSION: Moderately atrophic appearance of the pancreas is new when compared to the MRI from 05/17/2018. No pancreatic ductal dilatation, pancreatic calcifications, or peripancreatic inflammatory changes. Previously seen cystic foci in the pancreas are not visualized. No biliary ductal dilatation. Dictated by: Edgar Cruz M.D. on 02/19/2021 at 14:04 Approved by: Edgar Cruz M.D. on 02/19/2021 at 14:14
== END ==
PROVIDERS: PCP Nurse Practitioner Family
DX: K86.1 Other chronic pancreatitis (principal)
CPT/HCPCS: 74177

== ENCOUNTER → 2021-04-02 10:30 | Outpatient (CLI) | payer OTHER, SELFPAY ==
[2021-04-02 13:17] LABS: Influenza A - CEPHEID Flu A NEGATIVE (NEGATIVE); Influenza B - CEPHEID Flu B NEGATIVE (NEGATIVE)
[2021-04-02 13:30] LABS: COVID-19 CEPHEID PCR (VTM/NP) POSITIVE (Negative)
== END ==
PROVIDERS: PCP Nurse Practitioner Family; Referring Provider Nurse Practitioner Family; Visit Provider Nurse Practitioner Family
DX: U07.1 COVID-19 (principal); R50.9 Fever, unspecified; Z20.822 Contact with and (suspected) exposure to COVID-19
CPT/HCPCS: 87502; U0003

== ENCOUNTER → 2022-06-30 16:26 | Outpatient (CLI) | payer OTHER, SELFPAY ==
--- NOTE | 2022-06-30 16:27 | DI.RAD.S_ITS ---
PROCEDURE: XR SACROILIAC JOINT MIN 3V INDICATIONS: eval R SIJ pain TECHNIQUE: 3 views of the sacroiliac joints were acquired. COMPARISON: [facility], CT, CT ABDOMEN PELVIS W CON, 02/19/2021, 12:42. FINDINGS: Bones: No definite bony erosions or ankylosis. No suspicious bony lesions. No fractures. Soft tissues: Overlying bowel gas pattern is normal. No suspicious soft tissue densities. IMPRESSION: No acute osseous abnormality. If symptoms persist, follow-up radiographs and/or CT or MRI may be helpful for further evaluation. Dictated by: Edgar Sanchez M.D. on 07/01/2022 at 10:15 Approved by: Edgar Sanchez M.D. on 07/01/2022 at 10:17
== END ==
PROVIDERS: PCP Registered Nurse Diabetes Educator; Referring Provider Registered Nurse Diabetes Educator; Visit Provider Registered Nurse Diabetes Educator
DX: M53.3 Sacrococcygeal disorders, not elsewhere classified (principal); G89.29 Other chronic pain
CPT/HCPCS: 72202

== ENCOUNTER → 2023-03-23 14:00 | Outpatient (CLI) | payer OTHER, SELFPAY ==
[2023-03-23 15:06] LABS: Influenza A - CEPHEID Flu A NEGATIVE (NEGATIVE); Influenza B - CEPHEID Flu B NEGATIVE (NEGATIVE); Respiratory Syncytial Virus Negative (Negative)
[2023-03-23 15:07] LABS: COVID-19 CEPHEID 4-PLEX PCR Negative (Negative)
== END ==
PROVIDERS: Family Provider Registered Nurse Diabetes Educator; PCP Registered Nurse Diabetes Educator; Visit Provider Nurse Practitioner Family
DX: Z20.828 Contact with and (suspected) exposure to other viral communicable diseases (principal)
CPT/HCPCS: 0241U

== ENCOUNTER → 2023-08-18 15:07 | Outpatient (CLI) | payer OTHER, SELFPAY ==
--- NOTE | 2023-08-18 15:08 | DI.CT.S_ITS ---
PROCEDURE: CT ABDOMEN PELVIS W CON INDICATIONS: IgG4-related disease TECHNIQUE: After the administration of intravenous contrast, axial sections acquired from the lung bases to the pubic symphysis. Coronal and sagittal reformats were performed. For radiation dose reduction, the following was used: automated exposure control, adjustment of mA and/or kV according to patient size. COMPARISON: Outside Facility, , CT ABDOMEN/PELVIS WITH CONTRAST, 10/20/2022, 9:19. [facility], CT, CT ABDOMEN PELVIS W CON, 02/19/2021, 12:42. FINDINGS: Image quality: Diagnostic. Lower Chest: Mild bibasilar atelectasis. Heart size is normal. ABDOMEN: Liver: No solid mass. There is diffuse hypoattenuation of the liver parenchyma relative to the spleen compatible with hepatic steatosis. Gallbladder: No radiopaque gallstones or wall thickening. Biliary ducts: No biliary dilation. Pancreas: No ductal dilation. Pancreatic atrophy as before. Spleen: Size is within normal limits. Adrenal Glands: No adrenal nodules. Kidneys and Ureters: No hydronephrosis. No solid mass. No complex renal cystic lesion which requires follow up. Stomach and Bowel: Normal colonic caliber, without significant wall thickening. Normal appendix. Peritoneum: No abnormal intraperitoneal fluid. No free air. Ventral Wall: There is a fat-containing umbilical hernia without acute inflammation. Abdominal Nodes: No retroperitoneal or mesenteric adenopathy by size criteria. Vessels: Scattered atherosclerotic calcifications of the abdominal aorta and iliac vessels without aneurysmal dilatation. The inferior vena cava appears patent. PELVIS: Pelvic Organs: Unremarkable. Bladder: No bladder wall thickening, accounting for underdistention. Pelvic Nodes: No enlarged lymph nodes. Miscellaneous: No inguinal hernias are seen. Bones: No aggressive osseous abnormality. IMPRESSION: CT abdomen and pelvis without acute abnormality. Stable appearance of diffuse pancreatic atrophy. Hepatic steatosis. No biliary ductal dilatation seen. Dictated by: Clem Grullon M.D. on 08/18/2023 at 18:08 Approved by: Clem Grullon M.D. on 08/18/2023 at 18:14
== END ==
LOC: CT 15:07
PROVIDERS: Family Provider Registered Nurse Diabetes Educator; PCP Registered Nurse Diabetes Educator
DX: D89.84 IgG4-related disease (principal); K86.1 Other chronic pancreatitis; R17 Unspecified jaundice; D84.821 Immunodeficiency due to drugs; K42.9 Umbilical hernia without obstruction or gangrene
CPT/HCPCS: 74177; Q9967

== ENCOUNTER → 2024-07-24 10:59 | Outpatient (CLI) | payer OTHER, SELFPAY ==
[2024-07-24 11:31] LABS: Hematocrit 51.5 % (41-53); Hemoglobin 18.1 g/dL (13.5-17.5)
[2024-07-24 12:33] LABS: 585 Gram Check PASS; Amount Collected in g 585 g; Amount Collected mL calc 508 mL; Patient Weight <110 lb NO; Postsystolic BP 147 mmHg; Prediastolic 100 mmHg; Presystolic 144 mmHg; Pulse 65 bpm; Site of phlebotomy Right antecubital; Temperature 98.2; Therapeutic Phleb Consent Chec Consent signed @ reg; Therapeutic Phleb Start Time 1145; Therapeutic Phleb Stop Time 1155; Zero Check Sebra Scale PASS
[2024-07-24 12:34] LABS: Postdiastolic BP 96 mmHg
== END ==
LOC: LAB 11:04
PROVIDERS: Family Provider Registered Nurse Diabetes Educator; PCP Registered Nurse Diabetes Educator
DX: Z51.89 Encounter for other specified aftercare (principal); D75.1 Secondary polycythemia; Z79.890 Hormone replacement therapy
CPT/HCPCS: 36415; 85014; 85018; 99195

== ENCOUNTER → 2024-09-18 10:30 | Outpatient (CLI) | payer OTHER, SELFPAY ==
[2024-09-18 11:13] LABS: Hematocrit 53.0 % (41-53); Hemoglobin 18.2 g/dL (13.5-17.5)
[2024-09-18 11:42] LABS: 585 Gram Check PASS; Amount Collected in g 585 g; Amount Collected mL calc 508 mL; Patient Weight <110 lb NO; Postdiastolic BP 85 mmHg; Postsystolic BP 123 mmHg; Therapeutic Phleb Consent Chec Consent signed @ reg; Therapeutic Phleb Start Time 1120; Therapeutic Phleb Stop Time 1140; Zero Check Sebra Scale PASS
== END ==
PROVIDERS: Family Provider Registered Nurse Diabetes Educator; PCP Registered Nurse Diabetes Educator; Referring Provider Nurse Practitioner; Visit Provider Nurse Practitioner
DX: D75.1 Secondary polycythemia (principal); Z51.89 Encounter for other specified aftercare; Z79.890 Hormone replacement therapy
CPT/HCPCS: 36415; 85014; 85018; 99195

== ENCOUNTER → 2024-10-17 09:51 | Outpatient (CLI) | payer OTHER, SELFPAY ==
--- NOTE | 2024-10-17 09:55 | DI.CT.S_ITS ---
PROCEDURE: CT ABDOMEN PELVIS W CON INDICATIONS: IgG4-related disease TECHNIQUE: After the administration of intravenous contrast, axial sections acquired from the lung bases to the pubic symphysis. Coronal and sagittal reformats were performed. For radiation dose reduction, the following was used: automated exposure control, adjustment of mA and/or kV according to patient size. COMPARISON: [facility], CT, CT ABDOMEN PELVIS W CON, 08/18/2023, 16:03. FINDINGS: Image quality: Diagnostic Lower chest: Unremarkable lung bases. Small amount contrast is seen in the distal esophagus, probably from reflux or dysmotility. Liver: Unremarkable Gallbladder and biliary system: Unremarkable, nondilated Pancreas: Diffuse atrophy again seen. More focal atrophy is seen at the head. Imaging appearance is similar to prior. No measurable soft tissue mass or ductal dilation. Spleen: Nonenlarged Adrenals: No discrete nodules Kidneys: No solid renal mass. No hydronephrosis. Vessels and lymph nodes: Main portal vein is patent. No abdominal aortic aneurysm. Mild atherosclerotic calcifications. No enlarged lymph nodes by size criteria. Bowel and peritoneum: No evidence of small bowel obstruction. Moderate colonic fecal loading. Moderate rectal stool ball. No drainable abscess or ascites. Appendix is nondilated Body wall: Tiny fat containing umbilical hernia. Pelvis: Bladder is unremarkable. Diffusely heterogeneous prostate enhancement, not well assessed on this study Bones: No aggressive appearing osseous abnormality. Small sclerotic lesion right posterior iliac bone again seen. There are degenerative osseous changes. IMPRESSION: Diffuse pancreatic atrophy again seen, with particular focal involvement at the head. No ductal dilation or discrete soft tissue lesion. No hydronephrosis or significant retroperitoneal finding by CT. No significant biliary ductal dilation, although this could be better evaluated with MRCP if necessary Moderate colonic fecal loading. Moderate rectal stool ball. Other findings above. Dictated by: Jamison Duarte M.D. on 10/17/2024 at 12:38 Approved by: Jamison Duarte M.D. on 10/17/2024 at 12:50
[2024-10-17 10:44] LABS: Estimated Glomerular Filt Rate > 60 mL/min (>60)
[2024-10-17 10:58] LABS: Add Manual Diff / Slide Review NO; Hematocrit 50.7 % (41-53); Hemoglobin 17.9 g/dL (13.5-17.5); Lymphocytes Absolute Auto 1300 /uL (1100-4500); Mean Corpuscular HGB Conc 35.2 % (30-36); Mean Corpuscular Hemoglobin 30.3 PG (26-34); Mean Corpuscular Volume 85.9 fL (80-100); Platelet Count 151 X10^3/uL (150-400)
[2024-10-17 11:18] LABS: Alanine Aminotransferase 109 IU/L (<50); Albumin 4.7 g/dL (3.5-5.0); Albumin Globulin Ratio 1.7 (1.0-2.8); Alkaline Phosphatase 84 U/L (38-126); Blood Urea Nitrogen 14 mg/dL (9-20); Calcium 9.8 mg/dL (8.4-10.2); Carbon Dioxide 24 mmol/L (22-32); Chloride 101 mmol/L (98-107); Estimated Glomerular Filt Rate > 60 mL/min (>60); Globulin 2.7 g/dL (1.7-4.1); Glucose 135 mg/dL (70-99); HEMOLYSIS < 15 (0-50); Potassium 5.1 mmol/L (3.4-5.1); Sodium 133 mmol/L (137-145); Total Protein 7.4 g/dL (6.3-8.2)
[2024-10-17 11:19] LABS: Hemoglobin A1C% w Est Avg Glu 6.0 % (4.0-6.0)
== END ==
LOC: CT 09:52
PROVIDERS: Internal Medicine Rheumatology; Physician Assistant; Radiology Diagnostic Radiology; PCP Registered Nurse Diabetes Educator
DX: D89.84 IgG4-related disease (principal); R93.1 Abnormal findings on diagnostic imaging of heart and coronary circulation; K86.1 Other chronic pancreatitis; K86.89 Other specified diseases of pancreas
CPT/HCPCS: 36415; 74177; 80053; 82565; 82784; 82787; 83036; 85025; Q9967

== ENCOUNTER → 2024-12-28 10:38 | Outpatient (CLI) | payer OTHER, SELFPAY ==
[2024-12-28 11:17] LABS: Hematocrit 50.8 % (41-53); Hemoglobin 17.4 g/dL (13.5-17.5)
[2024-12-28 12:10] LABS: 585 Gram Check PASS; Therapeutic Phleb Consent Chec Consent signed @ reg; Zero Check Sebra Scale PASS
[2024-12-28 12:11] LABS: Patient Weight <110 lb NO; Therapeutic Phleb Start Time 1131; Therapeutic Phleb Stop Time 1146
[2024-12-28 12:12] LABS: Amount Collected in g 585 g; Amount Collected mL calc 508 mL; Dizziness N; Postdiastolic BP 78 mmHg; Postsystolic BP 113 mmHg; Swelling N
== END ==
PROVIDERS: PCP Registered Nurse Diabetes Educator; Referring Provider Nurse Practitioner; Visit Provider Nurse Practitioner
DX: D75.1 Secondary polycythemia (principal); Z51.89 Encounter for other specified aftercare; Z79.890 Hormone replacement therapy
CPT/HCPCS: 85014; 85018; 99195

== ENCOUNTER → 2025-02-21 10:39 | Outpatient (CLI) | payer OTHER, SELFPAY ==
[2025-02-21 10:59] LABS: Hematocrit 50.8 % (41-53); Hemoglobin 17.4 g/dL (13.5-17.5)
[2025-02-21 11:42] LABS: Therapeutic Phleb Consent Chec Consent signed @ reg; Zero Check Sebra Scale PASS
[2025-02-21 11:43] LABS: 585 Gram Check PASS; Amount Collected in g 585 g; Amount Collected mL calc 508 mL; Patient Weight <110 lb NO; Postsystolic BP 146 mmHg; Therapeutic Phleb Start Time 1126; Therapeutic Phleb Stop Time 1132
[2025-02-21 11:44] LABS: Dizziness N; Postdiastolic BP 88 mmHg; Swelling N
== END ==
PROVIDERS: PCP Registered Nurse Diabetes Educator; Referring Provider Nurse Practitioner; Visit Provider Nurse Practitioner
DX: Z51.89 Encounter for other specified aftercare (principal); D75.1 Secondary polycythemia; Z79.890 Hormone replacement therapy
CPT/HCPCS: 85014; 85018; 99195